=== PATIENT | male | born 1955 | race Caucasian/White ===

== ENCOUNTER 2024-10-06 14:08 | Emergency (ER) | payer OTHER ==
--- NOTE | 2024-10-06 14:56 | RAD REPORT ---
EXAMINATION: ONE VIEW CHEST XR CLINICAL INDICATION: HTN TECHNIQUE: Frontal chest projection is submitted. Examination is limited by patient positioning and t echnique. COMPARISON: No prior exam. FINDINGS: The lungs are well inflated and clear. The heart is upper limit of normal in size. No displaced fract ures identified. IMPRESSION: No acute intrathoracic abnormalities.
[2024-10-06 15:10] LABS: Absolute Basophils 0.1 K/uL (0-0.5); Absolute Eosinophils 0.1 K/uL (0-0.5); Absolute Lymphocytes (CBC) 1.3 K/uL (0.7-4.9); Absolute Monocytes 0.4 K/uL (0.1-1.3); Basophils % 0.6 % (0-1.3); Eosinophils % 0.6 % (0-4.4); Hematocrit 50.6 % (39.6-49.0); Hemoglobin 16.9 g/dL (13.6-17.9); Lymphocytes % 13.3 % (15.3-44.8); MCH 31.2 pg (27.0-35.0); MCHC 33.5 g/dL (32.0-36.0); MCV 93.2 fL (80-100); MPV 9.6 fL (7.6-11.3); Monocytes % 4.1 % (3.3-12.3); Neutrophils % 81.4 % (41.7-73.7); Platelets 180 thou/uL (152-406); RBC Red Blood Cell Count 5.43 M/uL (4.33-5.43); Red Cell Distribution Width 13.1 % (12.1-15.2)
[2024-10-06 15:21] LABS: Albumin/Globulin Ratio 1.1 (1.1-1.8); Anion Gap 8.3 mEq/L (5.0-15.0); Bilirubin Direct 0.3 mg/dL (0-0.2); Bilirubin Indirect, Calculated 1.3 mg/dL (0.2-0.8); Bilirubin Total 1.6 mg/dL (0.2-1.0); Globulin 3.5 g/dL (2.3-3.5); Potassium 4.3 mEq/L (3.5-5.1); Protein, Total 7.5 g/dL (6.4-8.2); Troponin High Sensitivity 5.2 pg/mL (<58.9)
[2024-10-06 15:48] LABS: Blood Morphology Comment NOT SEEN (NOT SEEN); Nucleated Red Blood Cells % 0.2 % (0-0); Platelet Estimate ADEQ; White Blood Cell Scan OK (OK)
--- NOTE | 2024-10-06 16:29 | ER ---
Nurse's Notes [facility] Name: Traci Vargas Age: 69 yrs Sex: Male : 1955 Arrival Date: 10/06/2024 Time: 14:08 Bed 6 Private MD: Diagnosis: Essential (primary) hypertension Presentation: 10/06 14:26 Chief complaint: Patient states: BP elevated at eye doctor today. States he doesn't ll1 feel bad. Coronavirus screen: Client denies travel out of the [place] in the last 14 days. At this time, the client does not indicate any symptoms associated with coronavirus-19. Ebola Screen: Patient denies travel to an Ebola-affected area in the 21 days before illness onset. Initial Sepsis Screen: Does the patient meet any 2 criteria? No. Patient's initial sepsis screen is negative. Does the patient have a suspected source of infection? No. Patient's initial sepsis screen is negative. Risk Assessment: Do you want to hurt yourself or someone else? Patient reports no desire to harm self or others. Onset of symptoms was October 06, 2024. 14:26 Method Of Arrival: Ambulatory 1 14:26 Acuity: BRENDAN 2 ll1 Triage Assessment: 14:30 General: Appears in no apparent distress. Behavior is calm, cooperative, appropriate bp for age. Pain: Denies pain. EENT: No deficits noted. Neuro: No deficits noted. Cardiovascular: Rhythm is sinus rhythm. Respiratory: No deficits noted. GI: No signs and/or symptoms were reported involving the gastrointestinal system. : No signs and/or symptoms were reported regarding the genitourinary system. Derm: No deficits noted. Musculoskeletal: No deficits noted. Historical: - Allergies: 14:27 No Known Allergies; ll1 - Home Meds: 14:27 None [Active]; ll1 - PMHx: 14:27 None; ll1 - PSHx: 14:27 None; ll1 - Immunization history:: Adult Immunizations up to date. - Social history:: Smoking status: Patient denies any tobacco usage or history of. Screenin:41 [facility] ED Fall Risk Assessment (Adult) History of falling in the last 3 months, ap3 including since admission No falls in past 3 months (0 pts) Confusion or Disorientation No (0 pts) Intoxicated or Sedated No (0 pts) Impaired Gait No (0 pts) Mobility Assist Device Used No (0 pt) Altered Elimination No (0 pt) Score/Fall Risk Level 0 - 2 = Low Risk Oriented to surroundings, Maintained a safe environment, Educated pt \T\ family on fall prevention, incl call for assistance when getting out of bed, Assessed \T\ reinforced patient's understanding of fall precautions, Hourly rounding (assess needs \T\ fall precautionary measures) done, Used ambulatory aids as needed (educated on \T\ assisted with), Used gait belt as appropriate. Abuse screen: Denies threats or abuse. Nutritional screening: No deficits noted. Tuberculosis screening: No symptoms or risk factors identified. Assessment: 14:40 General: Appears in no apparent distress. Behavior is calm, cooperative, appropriate ap3 for age. Pain: Denies pain. Neuro: Level of Consciousness is awake, alert, obeys commands, Oriented to person, place, time, situation, Appropriate for age. Cardiovascular: Patient's skin is warm and dry. Respiratory: Airway is patent Respiratory effort is even, unlabored, Respiratory pattern is regular, symmetrical. Vital Signs: 14:26 BP 216 / 127; Pulse 80; Resp 17; Temp 97.3; Pulse Ox 100% ; Weight 95.25 kg; Height 5 ll1 ft. 8 in. ; Pain 0/10; 14:41 BP 207 / 109; Pulse 89; Resp 17; Pulse Ox 99% on R/A; ap3 16:01 BP 196 / 107; Pulse 75; Resp 15; Pulse Ox 96% on R/A; jb4 14:26 Body Mass Index 31.93 (95.25 kg, 172.72 cm) ll1 14:26 Pain Scale: Adult ll1 ED Course: 14:11 Patient arrived in ED. sj2 14:22 Vitaliy Marino NP is PHCP. pm1 14:22 Jorge Avila MD is Attending Physician. pm1 14:27 Triage completed. ll1 14:28 Arm band placed on Patient placed in an exam room, on a stretcher. ll1 14:30 Kendy Romero RN is Primary Nurse. ap3 14:40 EKG done, by ED staff, reviewed by Vitaliy Marino NP. ap3 14:42 Patient has correct armband on for positive identification. Bed in low position. Call ap3 light in reach. Side rails up X2. Adult w/ patient. Provided Education on: call light education. Client placed on continuous cardiac and pulse oximetry monitoring. NIBP monitoring applied. air sampling and monitoring on. Pulse ox on. NIBP on. 14:52 XRAY Chest (1 view) In Process Unspecified. EDMS 14:52 Initial lab(s) drawn, by me, sent to lab. Inserted saline lock: 22 gauge in right upper bp arm, using aseptic technique. Blood collected. Flushed with 10 mL NS. 16:28 Gunnar Daugherty DO is Referral Physician. pm1 17:14 No provider procedures requiring assistance completed. IV discontinued, intact, bp bleeding controlled, No redness/swelling at site. Pressure dressing applied. Administered Medications: No medications were administered Outcome: 16:29 Discharge ordered by MD. pm1 17:14 Discharged to home ambulatory, with family, bp 17:14 Condition: stable 17:14 Discharge instructions given to patient, Instructed on discharge instructions, follow up and referral plans. medication usage, Demonstrated understanding of instructions, follow-up care, medications, Prescriptions given X 1, 17:15 Patient left the ED. bp Signatures: Dispatcher [employer] EDMO Vitaliy Marino, DRYER OPERATOR DRYER OPERATOR pm1 Angel Szymanski, RN RN jb4 Jonnie King RN RN bp Kendy Romero RN RN ap3 Helga Araiza RN RN ll1 Saqib Amezcua2
--- NOTE | 2024-10-06 16:29 | EDPHYS ---
Physician Documentation [facility] Name: Traci Vargas Age: 69 yrs Sex: Male : 1955 Arrival Date: 10/06/2024 Time: 14:08 Bed 6 Private MD: ED Physician Jorge Avila HPI: 10/06 14:36 This 69 yrs old Male presents to ER via Ambulatory with complaints of High Blood pm1 Pressure. 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 Systolic 220's. Onset: The symptoms/episode began/occurred Patient is unaware of hypertension. This is the first time he has had his pressure checked in 6-7 years. He reports 160's systolic when he broke his hand. He has not seen a PCP in over 2 decades. Modifying factors: The symptoms are aggravated by possible stress from building a home over the past three years. Associated signs and symptoms: The patient has no apparent associated signs or symptoms, Pertinent negatives: chest pain, dizziness, dyspnea, headache, lightheadedness, nausea, visual changes, vomiting, weakness. Severity of symptoms: in the emergency department the blood pressure is unchanged, from packaging design [employer]. He does not take any medications except for aspirin or ibuprofen for occasional aches and pains. The patient has not experienced similar symptoms in the past. The patient has not recently seen a physician, and does not have an established primary care provider. Historical: - Allergies: 14:27 No Known Allergies; ll1 - Home Meds: 14:27 None [Active]; ll1 - PMHx: 14:27 None; ll1 - PSHx: 14:27 None; ll1 - Immunization history:: Adult Immunizations up to date. - Social history:: Smoking status: Patient denies any tobacco usage or history of. ROS: 14:42 Constitutional: Negative for fever, chills, and weight loss, Eyes: Negative for injury, pm1 pain, redness, and discharge, Neck: Negative for injury, pain, and swelling, Cardiovascular: Negative for chest pain, palpitations, and edema, Respiratory: Negative for shortness of breath, cough, wheezing, and pleuritic chest pain, Abdomen/GI: Negative for abdominal pain, nausea, vomiting, diarrhea, and constipation, Back: Negative for injury and pain, MS/Extremity: Negative for injury and deformity, Skin: Negative for injury, rash, and discoloration, Neuro: Negative for headache, weakness, numbness, tingling, and seizure, 14:42 All other systems are negative, Exam: 14:40 ECG was reviewed by the Attending Physician. pm1 14:42 Constitutional: This is a well developed, well nourished patient who is awake, alert, pm1 and in no acute distress. Head/Face: Normocephalic, atraumatic. 14:42 Back: No spinal tenderness. No costovertebral tenderness. Full range of motion. Skin: Warm, dry with normal turgor. Normal color with no rashes, no lesions, and no evidence of cellulitis. MS/ Extremity: Pulses equal, no cyanosis. Neurovascular intact. Full, normal range of motion. 14:42 Cardiovascular: Exam negative for acute changes, Rate: normal, Rhythm: regular, Pulses: no pulse deficits are appreciated, Heart sounds: normal, Edema: is not appreciated, 14:42 Respiratory: Exam negative for acute changes, respiratory distress, shortness of breath, Breath sounds: are clear throughout, 14:42 Abdomen/GI: Exam negative for acute changes, Inspection: abdomen appears normal, Palpation: abdomen is soft and non-tender, in all quadrants, 14:42 Neuro: Exam negative for acute changes, Orientation: is normal, Mentation: is normal, Motor: is normal, moves all fours, Vital Signs: 14:26 BP 216 / 127; Pulse 80; Resp 17; Temp 97.3; Pulse Ox 100% ; Weight 95.25 kg; Height 5 ll1 ft. 8 in. ; Pain 0/10; 14:41 BP 207 / 109; Pulse 89; Resp 17; Pulse Ox 99% on R/A; ap3 16:01 BP 196 / 107; Pulse 75; Resp 15; Pulse Ox 96% on R/A; jb4 14:26 Body Mass Index 31.93 (95.25 kg, 172.72 cm) ll1 14:26 Pain Scale: Adult ll1 MDM: 14:23 Medical Screening Exam initiated pm1 14:43 Differential diagnosis: hypertensive crisis, Malignant HTN. Data interpreted: Pulse pm1 oximetry: on room air is 99 %. Interpretation: normal. Data reviewed: vital signs. 14:43 Historians other than the Patient: Spouse/Significant Other: : Reports patient pm1 under stress from building their home for the past 3 years. . Care significantly affected by the following chronic conditions: Patient unaware of any but I suspect he has had HTN for many years. He is asymptomatic. 15:41 Counseling: I had a detailed discussion with the patient and/or guardian regarding lab pm1 results, radiology results. 16:03 Consideration of Admission/Observation Escalation of care including pm1 admission/observation considered. If any end organ damage present would have admitted patient. I considered the following discharge prescriptions or medication management in the emergency department Patient given prescription for HTN. Anticipate patient will need additional HTN medications which will need to be managed by his future PCP. 16:03 Care significantly affected by the following Social Determinants of Health: Poor access pm1 to healthcare and/or lack of insurance. 10/06 14:36 Order name: Basic Metabolic Panel; Complete Time: 15:24 pm1 10/06 14:36 Order name: CBC with Diff; Complete Time: 15:58 pm1 10/06 14:36 Order name: LFT's; Complete Time: 15:24 pm1 10/06 14:36 Order name: NT PRO-BNP; Complete Time: 15:24 pm1 10/06 14:36 Order name: Troponin HS; Complete Time: 15:24 pm1 10/06 15:20 Order name: CBC Smear Scan; Complete Time: 15:58 EDMS 10/06 14:36 Order name: XRAY Chest (1 view); Complete Time: 15:02 pm1 10/06 14:36 Order name: Cardiac monitoring; Complete Time: 14:41 pm1 10/06 14:36 Order name: EKG - Nurse/Tech; Complete Time: 14:39 pm1 10/06 14:36 Order name: IV Saline Lock; Complete Time: 14:52 pm1 10/06 14:36 Order name: Labs collected and sent; Complete Time: 14:52 pm1 10/06 14:36 Order name: O2 Per Protocol; Complete Time: 14:41 pm1 10/06 14:36 Order name: O2 Sat Monitoring; Complete Time: 14:41 pm1 EC:40 Rate is 75 beats/min. Rhythm is regular, Normal Sinus Rhythm. QRS [place] is Normal. [place] pm1 interval is normal. QRS interval is normal. QT interval is normal. No Q waves. T waves are Normal. No ST changes noted. Clinical impression: NSR, Left anterior fascicular block, Abnormal ECG. Administered Medications: No medications were administered Disposition Summary: 10/06/24 16:29 Discharge Ordered Notes: Location: Home pm1 Problem: new pm1 Symptoms: have improved pm1 Condition: Stable pm1 Diagnosis - Essential (primary) hypertension pm1 Followup: ec2 - With: Gunnar Daugherty DO - When: - Reason: Recheck today's complaints Discharge Instructions: - Hypertension, Adult pm1 - How to Take Your Blood Pressure, [id number] pm1 - DASH Eating Plan pm1 - Managing Your Hypertension pm1 - Discharge Summary Sheet ec2 Forms: - Medication Reconciliation Form pm1 - Antibiotic Education pm1 - Prescription Opioid Use pm1 - Patient Portal Instructions pm1 - Leadership Thank You Letter pm1 Prescriptions: - Lisinopril 10 mg Oral Tablet - take 1 tablet ORAL route once daily; 20 tablet; Refills: 0, Product Selection pm1 Permitted Addendum: 10/07/2024 18:48 I was immediately available for consultation during this patient's visit. I did not e c2 personally see the patient or discuss the patient with the SREEDHAR. . Signatures: Dispatcher [employer] Vitaliy Sargent NP ASSISTANT MECHANIC pm1 Helga Araiza RN RN ll1 Jorge Avila MD MD ec2 Corrections: (The following items were deleted from the chart) 10/06 14:36 14:36 BASIC METABOLIC PANEL+C.LAB.BRZ ordered. EDMS EDMS 14:36 14:36 CBC+H.LAB.BRZ ordered. EDMS EDMS 14:36 14:36 HEPATIC FUNCTION+C.LAB.BRZ ordered. EDMS EDMS 14:36 14:36 PROBNP+C.LAB.BRZ ordered. EDMS EDMS 14:36 14:36 Troponin High Sensitivity+C.LAB.BRZ ordered. EDMS EDMS 14:36 14:36 Chest Single View+RAD.RAD.BRZ ordered. EDMS EDMS
[2024-10-06 17:41] VITALS: BP 196/107; TEMP 97.3; O2SAT 96
--- NOTE | 2024-10-08 15:51 | EKG ---
Test Date: 2024-10-06 Test Time: 14:35:49 Belt Measurer: ALP MEASUREMENT RESULTS: Intervals: Rate: 75 SC: 150 QRSD: 88 QT: 414 QTc: 462 [place]: P: 47 SC: 150 QRS: -55 T: 53 INTERPRETIVE STATEMENTS: Normal sinus rhythm Pulmonary disease pattern Left anterior fascicular block Abnormal ECG Compared to ECG 03/21/2004 13:43:00 Left anterior fascicular block now present Sinus bradycardia no longer present Left-axis deviation no longer present Left ventricular hypertrophy no longer present Electronically Signed On 10-08-24 15:48:11 ORDNANCE HANDLER by Rashel Luis
== END 2024-10-06 17:15 | disposition home or self-care (01) ==
LOC: ER 14:08
DX: I10 Essential (primary) hypertension (principal)
CPT/HCPCS: 36415; 71045; 80048; 80076; 83880; 84484; 85025; 93005; 99284